=== PATIENT | male | born 1965 | race Caucasian/White ===

== ENCOUNTER 2017-05-31 10:31 | Emergency (ER) | payer OTHER ==
[~2017-05-31] VITALS: Ht 190.5 cm; Wt 90.7 kg
[2017-05-31 10:36] VITALS: BP_SYST 147
[2017-05-31 11:50] VITALS: BP_SYST 135
== END 2017-05-31 11:50 | disposition home or self-care (01) ==
LOC: SED 10:31
DX: M77.32 Calcaneal spur, left foot (principal)
CPT/HCPCS: 73650-TC; 99284